=== PATIENT | female | born 1950 | race Caucasian/White ===

== ENCOUNTER 2020-11-20 14:14 | Inpatient (IN) | payer MEDICARE, MEDICAID ==
[~2020-11-20] VITALS: Ht 165.1 cm; Wt 92.6 kg
--- NOTE | 2020-11-20 14:30 | NUR ---
TRANSFER FROM [facility] FOR HYPOXIA R/T COVID. SOB/WEAK, DIARRHEA X 8 DAYS +COVID CXR AT [facility] "SEVERE MULTIFOCAL PNEUMONIA" LACTIC/TROPONIN/BNP/D-DIMER ELEVATED PULMONARY HTN/COPD HX ON 4L NC AT ALL TIMES-ON VIAGRA 3 TIMES/DAY HAD ASPIRIN/MAG/POTASSIUM/ROCEPHIN/AZITHRO/DECADRON PRIOR TO TRANSFER ON ARRIVAL SEVERE WOB BREATHING (RATE 15-20) /BLUE LIP ON OPTIFLOW AT 100% ON 55 LITERS-POX (EAR) 83%
[2020-11-20] MEDS ORDERED: SILDENAFIL 20 MG TABLET PO ONE (15:00)
--- NOTE | 2020-11-20 15:10 | NUR ---
-Patient remain 84-85% on 55l (max) at 100 on high flow. wob improved -Patient needing to void for 3rd time-erp aware- orders received for vera placement for i/os-temp sensing vera placed -poc reviewed with erp (repeat cxr/labs(trop)/electrolytes)/dose her PH Viagra or give inhaled of iv nitric. erp would like to give 40 of po viagra (patient reports she takes 120mg tid) [employer] attempting to verify -Patient coherent-requesting DNI. ERP/hospitalist at bedside agreeable -Patient takes lasix/optimet/viagra. again trying to determine doses -500ml of urine out thus far
[2020-11-20] MEDS ORDERED: FURO-93 PO (15:51)
[2020-11-20] MEDS ORDERED: SILD100T PO (15:51)
[2020-11-20] MEDS ORDERED: MACI10TA PO (15:51)
[2020-11-20] MEDS ORDERED: BUTALB/APAP/CAFFEINE 50MG/325MG/40MG PO PRN ×2 (16:00)
[2020-11-20] MEDS ORDERED: ONDANSETRON 2MG/ML, 2ML IVPush PRN (16:00)
[2020-11-20] MEDS ORDERED: PHARMACY MAY ADJ FOR RENAL FX MC PRN (16:00)
[2020-11-20] MEDS ORDERED: ENALAPRILAT 1.25 MG/ML, 2ML IVPush PRN (16:00)
[2020-11-20] MEDS ORDERED: ONDANSETRON ODT 4 MG PO PRN (16:00)
[2020-11-20] MEDS ORDERED: BACLOFEN 10 MG TABLET PO PRN (16:00)
[2020-11-20] MEDS ORDERED: hydrALAzine 20 MG/ML, 1ML IVPush PRN (16:00)
[2020-11-20] MEDS ORDERED: SODIUM CHLORIDE FLUSH 10ML SYR IVF PRN (16:00)
--- NOTE | 2020-11-20 16:07 | NUR ---
blood cultures drawn-sent to lab piv placed to right forearm from which basic labs and 1 set of ua sent to lab (had abx at [facility]) med recc completed
--- NOTE | 2020-11-20 16:14 | NUR ---
medicated per emar with 40mg of viagra, belongings list completed
[2020-11-20 16:17] VITALS: BP 110/56
--- NOTE | 2020-11-20 16:30 | NUR ---
attempted to give report x1. inpatient rn otherwise ocupied/supervisor extrusion in bed meeting. Will attempt again shortly
[2020-11-20 16:57] LABS: TROPONIN I 0.503 ng/mL (0.000-0.045)
[2020-11-20 17:04] LABS: D-DIMER 4.01 ug/mlFEU (0.00-0.52); INTERNATIONAL NORMALIZED RATIO 1.12 (0.93-1.1); PROTHROMBIN TIME 11.9 Seconds (9.6-11.5)
[2020-11-20] MEDS ORDERED: CYANOCOBALAMIN 1,000 MCG/ML, 1ML IM ONE (17:46)
[2020-11-20] MEDS: methylPREDNISolone SOD SUCC 125 MG/2 ML IV SCH ×2 (20:45→22:20)
[2020-11-20] MEDS: ASCORBIC ACID 500 MG TABLET PO SCH (20:50)
[2020-11-20] MEDS: TEMPLATE NON-FORMULARY MED. (Macitentan** (Opsumit**) 10 MG) PO SCH (22:18)
[2020-11-20] MEDS: MELATONIN 5 MG TABLET PO SCH (22:19)
[2020-11-20] MEDS: ENOXAPARIN 40 MG/0.4 ML SQ SCH (22:19)
[2020-11-20] MEDS: FAMOTIDINE 20 MG TABLET PO SCH (22:19)
[2020-11-21 00:20] LABS: TROPONIN I 0.475 ng/mL (0.000-0.045)
[2020-11-21] MEDS: methylPREDNISolone SOD SUCC 125 MG/2 ML IV SCH ×2 (03:25→09:32)
[2020-11-21 04:14] LABS: MEAN CORPUSCULAR HEMOGLOBIN 31.9 pg (27.0-34.8); MEAN CORPUSCULAR HGB CONC 34.1 g/dL (32.4-35.8); MEAN PLATELET VOLUME 11.1 fL (7.4-10.4); PLATELET COUNT 74 x10^3/uL (130-400); RED BLOOD COUNT 4.67 x10^6/uL (3.82-5.3); RED CELL DISTRIBUTION WIDTH 14.1 % (9.6-15.2)
[2020-11-21 04:24] LABS: ALBUMIN 2.4 g/dL (3.4-5.0); ANION GAP 9 mmol/L (5-15); CALCIUM 8.2 mg/dL (8.5-10.1); CHLORIDE 111 mmol/L (98-107)
[2020-11-21 04:38] LABS: ALANINE AMINOTRANSFERASE 15 U/L (12-78); ALKALINE PHOSPHATASE 54 U/L (45-117); CREATININE 0.71 mg/dL (0.55-1.02); TOTAL PROTEIN 5.6 g/dL (6.4-8.2)
[2020-11-21 04:43] LABS: ANISOCYTOSIS 1+; BAND#(MANUAL) 0.68 x10^3/uL; BANDS%(MANUAL) 11 % (0-7); LYMPH#(MANUAL) 0.56 x10^3/uL (1-3.4); LYMPHS% (MANUAL) 9 % (22-44); METAMYELOCYTES# (MANUAL) 0.12 x10^3/uL (0-0); METAMYELOCYTES% (MANUAL) 2 % (0-1); MONOS#(MANUAL) 0.19 x10^3/uL (0.3-2.7); MONOS% (MANUAL) 3 % (2-9); MYELOCYTES# (MANUAL) 0.06 x10^3/uL (0-0); MYELOCYTES% (MANUAL) 1 % (0-0); PMNS WITH VACUOLES 1+; POLYCHROMASIA 1+; REACTIVE LYMPHS # (MANUAL) 0.12 x10^3/uL (0-0); REACTIVE LYMPHS % (MANUAL) 2 % (0-0); SEG#(MANUAL) 4.46 x10^3/uL (1.8-6.8); SEGS% (MANUAL) 72 % (42-75)
[2020-11-21 04:44] LABS: <PLATELET ESTIMATE> ADEQUATE; <PLT MORPHOLOGY> NORMAL PLT MORPH
[2020-11-21 04:57] LABS: BILIRUBIN,TOTAL 0.7 mg/dL (0.2-1.0); TROPONIN I 0.502 ng/mL (0.000-0.045)
[2020-11-21] MEDS: ASPIRIN 325 MG TABLET EC PO SCH (06:00)
[2020-11-21] MEDS: SENNA/DOCUSATE TABLET PO SCH (09:00)
[2020-11-21] MEDS: TEMPLATE NON-FORMULARY MED. (Macitentan** (Opsumit**) 10 MG) PO SCH (09:00)
[2020-11-21] MEDS ORDERED: ZINC SULFATE 220 MG CAPSULE PO SCH (09:00)
[2020-11-21] MEDS ORDERED: FUROSEMIDE 20 MG TABLET PO SCH (09:00)
[2020-11-21] MEDS: ASCORBIC ACID 500 MG TABLET PO SCH ×2 (09:31→16:40)
[2020-11-21] MEDS: FAMOTIDINE 20 MG TABLET PO SCH ×2 (09:32→20:16)
[2020-11-21] MEDS: MULTIVITS,STRESS FORMULA 1 TABLET PO SCH (09:32)
[2020-11-21] MEDS: ACETAMINOPHEN 325 MG TABLET PO PRN ×2 (09:33→20:15)
[2020-11-21 11:10] LABS: MICROSCOPIC INDICATED
[2020-11-21] MEDS ORDERED: REMDESIVIR 200 MG in SODIUM CHLORIDE 0.9% 250 ML IVPB ONE (12:00)
[2020-11-21] MEDS: FLUTICASONE/VILANTEROL 100-25MCG/INH INH SCH (12:08)
[2020-11-21] MEDS: THIAMINE 100MG TABLET PO SCH (12:40)
[2020-11-21] MEDS: CHOLECALCIFEROL 5,000u TAB PO SCH (12:40)
[2020-11-21 12:47] LABS: TROPONIN I 0.473 ng/mL (0.000-0.045)
[2020-11-21] MEDS ORDERED: SILDENAFIL 20 MG TABLET PO SCH (16:00)
[2020-11-21] MEDS: SILDENAFIL 20 MG TABLET PO SCH (16:38)
[2020-11-21] MEDS: ENOXAPARIN 40 MG/0.4 ML SQ SCH ×2 (16:39→21:51)
[2020-11-21] MEDS: DEXAMETHASONE 4 MG/ML, 1ML IV SCH (16:40)
[2020-11-21] MEDS: CEFTRIAXONE 1,000 MG in DEXTROSE 5% 50 ML IVPB SCH (18:14)
[2020-11-21] MEDS: AZITHROMYCIN 500 MG in SODIUM CHLORIDE 0.9% 250 ML IV SCH (20:07)
[2020-11-21] MEDS: FUROSEMIDE 20 MG/2 ML IV SCH (20:16)
[2020-11-21] MEDS: MELATONIN 5 MG TABLET PO SCH (20:16)
[2020-11-22] MEDS: SILDENAFIL 20 MG TABLET PO SCH ×4 (00:27→23:55)
[2020-11-22 04:34] LABS: BASOPHILS % (AUTO) 0 % (0-1); EOSINOPHILS % (AUTO) 0 % (1-7); LYMPHOCYTES % (AUTO) 6 % (22-44); MEAN CORPUSCULAR HEMOGLOBIN 31.5 pg (27.0-34.8); MEAN CORPUSCULAR HGB CONC 33.5 g/dL (32.4-35.8); MEAN PLATELET VOLUME 11.5 fL (7.4-10.4); MONOCYTES % (AUTO) 6 % (2-9); NEUTROPHILS % (AUTO) 88 % (42-75); PLATELET COUNT 90 x10^3/uL (130-400); RED BLOOD COUNT 4.75 x10^6/uL (3.82-5.3); RED CELL DISTRIBUTION WIDTH 14.5 % (9.6-15.2)
[2020-11-22 04:43] LABS: D-DIMER 1.68 ug/mlFEU (0.00-0.52)
[2020-11-22 04:44] LABS: ALANINE AMINOTRANSFERASE 17 U/L (12-78); ALBUMIN 2.7 g/dL (3.4-5.0); ANION GAP 5 mmol/L (5-15); CALCIUM 8.2 mg/dL (8.5-10.1); CHLORIDE 114 mmol/L (98-107); CREATININE 0.87 mg/dL (0.55-1.02)
[2020-11-22 04:50] LABS: ALKALINE PHOSPHATASE 59 U/L (45-117); BILIRUBIN,TOTAL 0.6 mg/dL (0.2-1.0); TOTAL PROTEIN 5.9 g/dL (6.4-8.2)
[2020-11-22] MEDS: ASPIRIN 325 MG TABLET EC PO SCH (06:07)
[2020-11-22] MEDS: FUROSEMIDE 20 MG/2 ML IV SCH ×2 (09:45→20:23)
[2020-11-22] MEDS: THIAMINE 100MG TABLET PO SCH (09:46)
[2020-11-22] MEDS: MULTIVITS,STRESS FORMULA 1 TABLET PO SCH (09:46)
[2020-11-22] MEDS: FAMOTIDINE 20 MG TABLET PO SCH ×2 (09:46→20:23)
[2020-11-22] MEDS: ASCORBIC ACID 500 MG TABLET PO SCH ×2 (09:46→17:26)
[2020-11-22] MEDS: SENNA/DOCUSATE TABLET PO SCH (09:46)
[2020-11-22] MEDS: CHOLECALCIFEROL 5,000u TAB PO SCH (09:46)
[2020-11-22] MEDS: ZINC SULFATE 220 MG CAPSULE PO SCH (09:46)
[2020-11-22] MEDS: ENOXAPARIN 40 MG/0.4 ML SQ SCH ×2 (09:47→20:24)
[2020-11-22] MEDS: TEMPLATE NON-FORMULARY MED. (Macitentan** (Opsumit**) 10 MG) PO SCH (09:47)
[2020-11-22] MEDS: FLUTICASONE/VILANTEROL 100-25MCG/INH INH SCH (09:48)
[2020-11-22] MEDS: POTASSIUM CHLORIDE 20 MEQ TAB.ER.PRT PO SCH ×2 (09:53→20:23)
[2020-11-22] MEDS: REMDESIVIR 100 MG in SODIUM CHLORIDE 0.9% 250 ML IVPB SCH (12:29)
[2020-11-22] MEDS: DEXAMETHASONE 4 MG/ML, 1ML IV SCH (15:36)
[2020-11-22] MEDS: CEFTRIAXONE 1,000 MG in DEXTROSE 5% 50 ML IVPB SCH (17:27)
[2020-11-22] MEDS: AZITHROMYCIN 500 MG in SODIUM CHLORIDE 0.9% 250 ML IV SCH (19:33)
[2020-11-22] MEDS: MELATONIN 5 MG TABLET PO SCH (20:23)
[2020-11-22] MEDS: GUAIFENESIN/DM 200-20MG, 10ML UDC PO PRN (21:41)
[2020-11-23 04:30] LABS: BASOPHILS % (AUTO) 0 % (0-1); EOSINOPHILS % (AUTO) 0 % (1-7); LYMPHOCYTES % (AUTO) 5 % (22-44); MEAN CORPUSCULAR HEMOGLOBIN 31.2 pg (27.0-34.8); MEAN CORPUSCULAR HGB CONC 33.3 g/dL (32.4-35.8); MONOCYTES % (AUTO) 4 % (2-9); NEUTROPHILS % (AUTO) 90 % (42-75); PLATELET COUNT 104 x10^3/uL (130-400); RED BLOOD COUNT 4.68 x10^6/uL (3.82-5.3); RED CELL DISTRIBUTION WIDTH 14.3 % (9.6-15.2)
[2020-11-23 04:42] LABS: ALANINE AMINOTRANSFERASE 20 U/L (12-78); ALBUMIN 2.4 g/dL (3.4-5.0); ANION GAP 5 mmol/L (5-15); CALCIUM 8.1 mg/dL (8.5-10.1); CHLORIDE 114 mmol/L (98-107); CREATININE 0.86 mg/dL (0.55-1.02)
[2020-11-23 04:44] LABS: ALKALINE PHOSPHATASE 55 U/L (45-117); BILIRUBIN,TOTAL 0.4 mg/dL (0.2-1.0); TOTAL PROTEIN 5.5 g/dL (6.4-8.2)
[2020-11-23] MEDS: ASPIRIN 325 MG TABLET EC PO SCH (05:44)
[2020-11-23] MEDS: GUAIFENESIN/DM 200-20MG, 10ML UDC PO PRN ×2 (07:04→19:20)
[2020-11-23] MEDS: SENNA/DOCUSATE TABLET PO SCH (09:00)
[2020-11-23] MEDS: SILDENAFIL 20 MG TABLET PO SCH ×2 (09:40→16:34)
[2020-11-23] MEDS: ENOXAPARIN 40 MG/0.4 ML SQ SCH ×2 (09:40→20:20)
[2020-11-23] MEDS: FLUTICASONE/VILANTEROL 100-25MCG/INH INH SCH (09:40)
[2020-11-23] MEDS: CHOLECALCIFEROL 5,000u TAB PO SCH (09:41)
[2020-11-23] MEDS: THIAMINE 100MG TABLET PO SCH (09:41)
[2020-11-23] MEDS: FUROSEMIDE 20 MG/2 ML IV SCH ×2 (09:41→20:20)
[2020-11-23] MEDS: FAMOTIDINE 20 MG TABLET PO SCH ×2 (09:41→20:20)
[2020-11-23] MEDS: ASCORBIC ACID 500 MG TABLET PO SCH ×2 (09:41→16:34)
[2020-11-23] MEDS: ZINC SULFATE 220 MG CAPSULE PO SCH (09:42)
[2020-11-23] MEDS: TEMPLATE NON-FORMULARY MED. (Macitentan** (Opsumit**) 10 MG) PO SCH (09:42)
[2020-11-23] MEDS: MULTIVITS,STRESS FORMULA 1 TABLET PO SCH (09:42)
[2020-11-23] MEDS: REMDESIVIR 100 MG in SODIUM CHLORIDE 0.9% 250 ML IVPB SCH (12:22)
[2020-11-23] MEDS ORDERED: AMIODARONE 150 MG in DEXTROSE 5% 100 ML IV ONE (16:00)
[2020-11-23] MEDS ORDERED: FILTER 0.22 MICRON IV PRN (16:30)
[2020-11-23] MEDS: DEXAMETHASONE 4 MG/ML, 1ML IV SCH (16:34)
[2020-11-23] MEDS: AMIODARONE 450 MG in DEXTROSE 5% 241 ML IV PRN ×2 (16:35→21:33)
[2020-11-23] MEDS: CEFTRIAXONE 1,000 MG in DEXTROSE 5% 50 ML IVPB SCH (16:36)
[2020-11-23] MEDS: AZITHROMYCIN 500 MG in SODIUM CHLORIDE 0.9% 250 ML IV SCH (19:53)
[2020-11-23] MEDS: MELATONIN 5 MG TABLET PO SCH (20:20)
[2020-11-24 05:00] LABS: CALCIUM 8.4 mg/dL (8.5-10.1); CHLORIDE 110 mmol/L (98-107)
[2020-11-24 05:06] LABS: ALANINE AMINOTRANSFERASE 24 U/L (12-78); ALBUMIN 2.4 g/dL (3.4-5.0); ALKALINE PHOSPHATASE 58 U/L (45-117); ANION GAP 6 mmol/L (5-15); BILIRUBIN,TOTAL 0.6 mg/dL (0.2-1.0); CREATININE 0.81 mg/dL (0.55-1.02); TOTAL PROTEIN 5.8 g/dL (6.4-8.2)
[2020-11-24] MEDS ORDERED: POTASSIUM CHLORIDE 20 MEQ TAB.ER.PRT PO ONE (07:00)
[2020-11-24] MEDS: ASCORBIC ACID 500 MG TABLET PO SCH ×2 (08:00→16:14)
[2020-11-24] MEDS: SILDENAFIL 20 MG TABLET PO SCH ×4 (08:00→23:52)
[2020-11-24] MEDS ORDERED: ASCORBIC ACID 250 MG TAB ONE (08:28)
[2020-11-24] MEDS: ASPIRIN 325 MG TABLET EC PO SCH (08:39)
[2020-11-24] MEDS: ENOXAPARIN 40 MG/0.4 ML SQ SCH (08:39)
[2020-11-24] MEDS: THIAMINE 100MG TABLET PO SCH (08:39)
[2020-11-24] MEDS: ZINC SULFATE 220 MG CAPSULE PO SCH (08:40)
[2020-11-24] MEDS: MULTIVITS,STRESS FORMULA 1 TABLET PO SCH (08:40)
[2020-11-24] MEDS: FLUTICASONE/VILANTEROL 100-25MCG/INH INH SCH (08:40)
[2020-11-24] MEDS: CHOLECALCIFEROL 5,000u TAB PO SCH (08:40)
[2020-11-24] MEDS: FAMOTIDINE 20 MG TABLET PO SCH ×2 (08:40→20:43)
[2020-11-24] MEDS: FUROSEMIDE 20 MG/2 ML IV SCH ×2 (08:40→20:43)
[2020-11-24] MEDS: TEMPLATE NON-FORMULARY MED. (Macitentan** (Opsumit**) 10 MG) PO SCH (08:41)
[2020-11-24] MEDS: SENNA/DOCUSATE TABLET PO SCH (08:41)
[2020-11-24] MEDS: REMDESIVIR 100 MG in SODIUM CHLORIDE 0.9% 250 ML IVPB SCH (12:26)
[2020-11-24] MEDS: GUAIFENESIN/DM 200-20MG, 10ML UDC PO PRN (12:26)
[2020-11-24] MEDS: AMIODARONE 450 MG in DEXTROSE 5% 241 ML IV PRN (12:52)
[2020-11-24] MEDS: DEXAMETHASONE 4 MG/ML, 1ML IV SCH (16:14)
[2020-11-24] MEDS: CEFTRIAXONE 1,000 MG in DEXTROSE 5% 50 ML IVPB SCH (16:14)
[2020-11-24] MEDS: RIVAROXABAN 20 MG TABLET PO SCH (16:14)
[2020-11-24] MEDS: MELATONIN 5 MG TABLET PO SCH (20:43)
[2020-11-25] MEDS: AMIODARONE 450 MG in DEXTROSE 5% 241 ML IV PRN (03:58)
[2020-11-25 04:18] LABS: ALBUMIN 2.2 g/dL (3.4-5.0); ANION GAP 5 mmol/L (5-15); CALCIUM 8.7 mg/dL (8.5-10.1); CHLORIDE 109 mmol/L (98-107)
[2020-11-25 04:21] LABS: ALANINE AMINOTRANSFERASE 21 U/L (12-78); ALKALINE PHOSPHATASE 60 U/L (45-117); BILIRUBIN,TOTAL 0.5 mg/dL (0.2-1.0); TOTAL PROTEIN 5.5 g/dL (6.4-8.2)
[2020-11-25] MEDS: SILDENAFIL 20 MG TABLET PO SCH ×3 (08:00→21:38)
[2020-11-25] MEDS: ASCORBIC ACID 500 MG TABLET PO SCH ×2 (08:00→16:18)
[2020-11-25] MEDS: SENNA/DOCUSATE TABLET PO SCH (09:00)
[2020-11-25] MEDS: TEMPLATE NON-FORMULARY MED. (Macitentan** (Opsumit**) 10 MG) PO SCH (09:00)
[2020-11-25] MEDS ORDERED: ASCORBIC ACID 250 MG TAB ONE (09:20)
[2020-11-25] MEDS: FUROSEMIDE 20 MG/2 ML IV SCH ×2 (09:26→21:02)
[2020-11-25] MEDS: ZINC SULFATE 220 MG CAPSULE PO SCH (09:26)
[2020-11-25] MEDS: FAMOTIDINE 20 MG TABLET PO SCH ×2 (09:26→21:02)
[2020-11-25] MEDS: AMIODARONE 200 MG TABLET PO SCH ×2 (09:27→21:03)
[2020-11-25] MEDS: MULTIVITS,STRESS FORMULA 1 TABLET PO SCH (09:28)
[2020-11-25] MEDS: FLUTICASONE/VILANTEROL 100-25MCG/INH INH SCH (09:28)
[2020-11-25] MEDS: THIAMINE 100MG TABLET PO SCH (09:28)
[2020-11-25] MEDS: CHOLECALCIFEROL 5,000u TAB PO SCH (09:28)
[2020-11-25] MEDS: ASPIRIN 325 MG TABLET EC PO SCH (09:29)
[2020-11-25] MEDS: REMDESIVIR 100 MG in SODIUM CHLORIDE 0.9% 250 ML IVPB SCH (12:32)
[2020-11-25] MEDS: DEXAMETHASONE 4 MG/ML, 1ML IV SCH (16:17)
[2020-11-25] MEDS: CEFTRIAXONE 1,000 MG in DEXTROSE 5% 50 ML IVPB SCH (16:18)
[2020-11-25] MEDS: RIVAROXABAN 20 MG TABLET PO SCH (16:18)
[2020-11-25] MEDS: GUAIFENESIN/DM 200-20MG, 10ML UDC PO PRN (17:47)
[2020-11-25] MEDS: MELATONIN 5 MG TABLET PO SCH (21:00)
[2020-11-25] MEDS ORDERED: BISACODYL 10 MG SUPP PR PRN (21:30)
[2020-11-25] MEDS ORDERED: DOCUSATE 100 MG CAPSULE PO PRN (21:30)
[2020-11-26 03:56] LABS: BASOPHILS % (AUTO) 0 % (0-1); EOSINOPHILS % (AUTO) 0 % (1-7); LYMPHOCYTES % (AUTO) 5 % (22-44); MEAN CORPUSCULAR HEMOGLOBIN 30.9 pg (27.0-34.8); MEAN CORPUSCULAR HGB CONC 32.8 g/dL (32.4-35.8); MEAN PLATELET VOLUME 12.4 fL (7.4-10.4); MONOCYTES % (AUTO) 4 % (2-9); NEUTROPHILS % (AUTO) 91 % (42-75); PLATELET COUNT 100 x10^3/uL (130-400); RED BLOOD COUNT 5.32 x10^6/uL (3.82-5.3); RED CELL DISTRIBUTION WIDTH 14.2 % (9.6-15.2)
[2020-11-26 04:06] LABS: ANION GAP 6 mmol/L (5-15); CALCIUM 9.1 mg/dL (8.5-10.1); CHLORIDE 106 mmol/L (98-107); CREATININE 0.79 mg/dL (0.55-1.02)
[2020-11-26] MEDS: SILDENAFIL 20 MG TABLET PO SCH ×2 (08:00→15:22)
[2020-11-26] MEDS: ASPIRIN 325 MG TABLET EC PO SCH (08:07)
[2020-11-26] MEDS: MULTIVITS,STRESS FORMULA 1 TABLET PO SCH (08:07)
[2020-11-26] MEDS: FAMOTIDINE 20 MG TABLET PO SCH ×2 (08:07→20:16)
[2020-11-26] MEDS: AMIODARONE 200 MG TABLET PO SCH ×2 (08:07→20:16)
[2020-11-26] MEDS: SENNA/DOCUSATE TABLET PO SCH (08:07)
[2020-11-26] MEDS: ASCORBIC ACID 500 MG TABLET PO SCH ×2 (08:07→17:16)
[2020-11-26] MEDS: CHOLECALCIFEROL 5,000u TAB PO SCH (08:07)
[2020-11-26] MEDS: INSULIN LISPRO 100 UNITS/ML, PEN SQ-INSULIN SCH ×4 (08:07→20:28)
[2020-11-26] MEDS: ZINC SULFATE 220 MG CAPSULE PO SCH (08:08)
[2020-11-26] MEDS: THIAMINE 100MG TABLET PO SCH (08:08)
[2020-11-26] MEDS: FUROSEMIDE 20 MG/2 ML IV SCH ×2 (08:08→20:23)
[2020-11-26] MEDS: FLUTICASONE/VILANTEROL 100-25MCG/INH INH SCH (08:08)
[2020-11-26] MEDS: TEMPLATE NON-FORMULARY MED. (Macitentan** (Opsumit**) 10 MG) PO SCH (08:09)
[2020-11-26] MEDS: DEXAMETHASONE 4 MG/ML, 1ML IV SCH (15:22)
[2020-11-26] MEDS: CEFTRIAXONE 1,000 MG in DEXTROSE 5% 50 ML IVPB SCH (17:16)
[2020-11-26] MEDS: RIVAROXABAN 20 MG TABLET PO SCH (17:16)
[2020-11-26] MEDS ORDERED: FUROSEMIDE 40 MG/4 ML ONE (19:44)
[2020-11-26] MEDS: MELATONIN 5 MG TABLET PO SCH (20:16)
[2020-11-27] MEDS: SILDENAFIL 20 MG TABLET PO SCH ×3 (00:41→16:00)
[2020-11-27 06:10] LABS: CHLORIDE 102 mmol/L (98-107)
[2020-11-27 06:16] LABS: ANION GAP 9 mmol/L (5-15); CALCIUM 9.7 mg/dL (8.5-10.1); CREATININE 0.95 mg/dL (0.55-1.02)
[2020-11-27] MEDS: INSULIN LISPRO 100 UNITS/ML, PEN SQ-INSULIN SCH ×4 (06:23→21:47)
[2020-11-27] MEDS ORDERED: FUROSEMIDE 40 MG/4 ML ONE (07:59)
[2020-11-27] MEDS: FUROSEMIDE 20 MG/2 ML IV SCH ×2 (08:32→21:40)
[2020-11-27] MEDS: SENNA/DOCUSATE TABLET PO SCH (08:33)
[2020-11-27] MEDS: CHOLECALCIFEROL 5,000u TAB PO SCH (08:33)
[2020-11-27] MEDS: AMIODARONE 200 MG TABLET PO SCH ×2 (08:33→21:40)
[2020-11-27] MEDS: ZINC SULFATE 220 MG CAPSULE PO SCH (08:33)
[2020-11-27] MEDS: MULTIVITS,STRESS FORMULA 1 TABLET PO SCH (08:34)
[2020-11-27] MEDS: TEMPLATE NON-FORMULARY MED. (Macitentan** (Opsumit**) 10 MG) PO SCH (08:34)
[2020-11-27] MEDS: ASPIRIN 325 MG TABLET EC PO SCH (08:34)
[2020-11-27] MEDS: ASCORBIC ACID 500 MG TABLET PO SCH ×2 (08:34→16:06)
[2020-11-27] MEDS: THIAMINE 100MG TABLET PO SCH (08:34)
[2020-11-27] MEDS: FLUTICASONE/VILANTEROL 100-25MCG/INH INH SCH (08:50)
[2020-11-27] MEDS: RIVAROXABAN 20 MG TABLET PO SCH (16:06)
[2020-11-27] MEDS: DEXAMETHASONE 4 MG/ML, 1ML IV SCH (16:07)
[2020-11-27] MEDS: CEFTRIAXONE 1,000 MG in DEXTROSE 5% 50 ML IVPB SCH (16:24)
[2020-11-27] MEDS: FAMOTIDINE 20 MG TABLET PO SCH (21:40)
[2020-11-27] MEDS: MELATONIN 5 MG TABLET PO SCH (21:40)
[2020-11-28] MEDS: SILDENAFIL 20 MG TABLET PO SCH ×4 (00:20→23:53)
[2020-11-28 04:40] LABS: BASOPHILS % (AUTO) 0 % (0-1); EOSINOPHILS % (AUTO) 0 % (1-7); LYMPHOCYTES % (AUTO) 5 % (22-44); MEAN CORPUSCULAR HEMOGLOBIN 30.9 pg (27.0-34.8); MEAN CORPUSCULAR HGB CONC 32.7 g/dL (32.4-35.8); MEAN PLATELET VOLUME 12.2 fL (7.4-10.4); MONOCYTES % (AUTO) 4 % (2-9); NEUTROPHILS % (AUTO) 91 % (42-75); PLATELET COUNT 99 x10^3/uL (130-400); RED BLOOD COUNT 5.18 x10^6/uL (3.82-5.3); RED CELL DISTRIBUTION WIDTH 14.5 % (9.6-15.2)
[2020-11-28 04:52] LABS: CALCIUM 9.3 mg/dL (8.5-10.1)
[2020-11-28 04:54] LABS: CREATININE 0.98 mg/dL (0.55-1.02)
[2020-11-28 05:01] LABS: ANION GAP 9 mmol/L (5-15); CHLORIDE 101 mmol/L (98-107)
[2020-11-28] MEDS: INSULIN LISPRO 100 UNITS/ML, PEN SQ-INSULIN SCH ×4 (07:00→22:46)
[2020-11-28] MEDS: ASCORBIC ACID 500 MG TABLET PO SCH ×2 (08:00→17:09)
[2020-11-28] MEDS: CHOLECALCIFEROL 5,000u TAB PO SCH (08:38)
[2020-11-28] MEDS: THIAMINE 100MG TABLET PO SCH (08:38)
[2020-11-28] MEDS: FUROSEMIDE 20 MG/2 ML IV SCH (08:38)
[2020-11-28] MEDS: ASPIRIN 325 MG TABLET EC PO SCH (08:38)
[2020-11-28] MEDS: ZINC SULFATE 220 MG CAPSULE PO SCH (08:39)
[2020-11-28] MEDS: MULTIVITS,STRESS FORMULA 1 TABLET PO SCH (08:39)
[2020-11-28] MEDS: AMIODARONE 200 MG TABLET PO SCH ×2 (08:39→22:32)
[2020-11-28] MEDS: TEMPLATE NON-FORMULARY MED. (Macitentan** (Opsumit**) 10 MG) PO SCH (08:39)
[2020-11-28] MEDS: SENNA/DOCUSATE TABLET PO SCH (08:39)
[2020-11-28] MEDS: FLUTICASONE/VILANTEROL 100-25MCG/INH INH SCH (09:01)
[2020-11-28] MEDS ORDERED: ETOMIDATE 20 MG/10 ML ONE (09:54)
[2020-11-28] MEDS ORDERED: MIDAZOLAM 1 MG/ML, 5ML ONE (09:54)
[2020-11-28] MEDS ORDERED: PROPOFOL 10 MG/ML, 100ML IV ONE (09:54)
[2020-11-28] MEDS ORDERED: PHARMACY MAY ADJ FOR RENAL FX MC SCH (16:30)
[2020-11-28] MEDS ORDERED: DEXTROSE 50%, 50ML SYRINGE IVPush PRN (16:30)
[2020-11-28] MEDS ORDERED: LIDOCAINE-MPF 1%, 2ML ENDO PRN (16:30)
[2020-11-28] MEDS ORDERED: DEXTROSE 4 GM TAB.CHEW PO PRN (16:30)
[2020-11-28] MEDS: PROPOFOL 100 ML IV PRN ×3 (16:30→23:54)
[2020-11-28] MEDS ORDERED: GLUCAGON 1 MG IM PRN (16:30)
[2020-11-28] MEDS: RIVAROXABAN 20 MG TABLET PO SCH (17:09)
[2020-11-28] MEDS: DEXAMETHASONE 4 MG/ML, 1ML IV SCH (17:10)
[2020-11-28] MEDS: FAMOTIDINE 40 MG/5 ML ORAL SUSP PO SCH (22:33)
[2020-11-28] MEDS: SODIUM CHLORIDE FLUSH 10ML SYR IVF SCH (22:36)
[2020-11-29 05:06] LABS: ANION GAP 5 mmol/L (5-15); BASOPHILS % (AUTO) 1 % (0-1); CALCIUM 9.1 mg/dL (8.5-10.1); CHLORIDE 101 mmol/L (98-107); EOSINOPHILS % (AUTO) 0 % (1-7); LYMPHOCYTES % (AUTO) 4 % (22-44); MEAN CORPUSCULAR HEMOGLOBIN 31.5 pg (27.0-34.8); MEAN CORPUSCULAR HGB CONC 33.3 g/dL (32.4-35.8); MEAN PLATELET VOLUME 13.6 fL (7.4-10.4); MONOCYTES % (AUTO) 4 % (2-9); NEUTROPHILS % (AUTO) 90 % (42-75); PLATELET COUNT 105 x10^3/uL (130-400); RED BLOOD COUNT 5.02 x10^6/uL (3.82-5.3); RED CELL DISTRIBUTION WIDTH 14.5 % (9.6-15.2)
[2020-11-29] MEDS: INSULIN LISPRO 100 UNITS/ML, PEN SQ-INSULIN SCH ×4 (06:53→21:17)
[2020-11-29] MEDS: FLUTICASONE/VILANTEROL 100-25MCG/INH INH SCH (09:00)
[2020-11-29] MEDS: TEMPLATE NON-FORMULARY MED. (Macitentan** (Opsumit**) 10 MG) PO SCH (09:00)
[2020-11-29] MEDS: AMIODARONE 200 MG TABLET PO SCH ×2 (09:23→21:17)
[2020-11-29] MEDS: MULTIVITS,STRESS FORMULA 1 TABLET PO SCH (09:23)
[2020-11-29] MEDS: ASPIRIN 325 MG TABLET PO SCH (09:23)
[2020-11-29] MEDS: FUROSEMIDE 20 MG/2 ML IV SCH (09:24)
[2020-11-29] MEDS: ZINC SULFATE 220 MG CAPSULE PO SCH (09:24)
[2020-11-29] MEDS: SILDENAFIL 20 MG TABLET PO SCH ×2 (09:24→15:05)
[2020-11-29] MEDS: THIAMINE 100MG TABLET PO SCH (09:24)
[2020-11-29] MEDS: DOCUSATE 50 MG/5 ML, 10ML UDC PO SCH (09:24)
[2020-11-29] MEDS: ASCORBIC ACID 500 MG TABLET PO SCH ×2 (09:24→21:17)
[2020-11-29] MEDS: CHOLECALCIFEROL 5,000u TAB PO SCH (09:24)
[2020-11-29] MEDS: SODIUM CHLORIDE FLUSH 10ML SYR IVF SCH ×2 (09:25→21:18)
[2020-11-29] MEDS: SENNA 176 MG/5 ML ORAL SOL PO SCH (09:27)
[2020-11-29] MEDS: PROPOFOL 100 ML IV PRN ×2 (09:56→18:12)
[2020-11-29 10:30] LABS: MICROSCOPIC INDICATED
[2020-11-29] MEDS: DEXAMETHASONE 4 MG/ML, 1ML IV SCH (15:04)
[2020-11-29] MEDS: RIVAROXABAN 20 MG TABLET PO SCH (15:04)
[2020-11-29] MEDS: FAMOTIDINE 40 MG/5 ML ORAL SUSP PO SCH (21:17)
[2020-11-30] MEDS: SILDENAFIL 20 MG TABLET PO SCH ×4 (00:04→23:39)
[2020-11-30] MEDS: PROPOFOL 100 ML IV PRN ×4 (03:41→23:39)
[2020-11-30] MEDS: INSULIN LISPRO 100 UNITS/ML, PEN SQ-INSULIN SCH ×4 (03:57→21:15)
[2020-11-30 04:18] LABS: BASOPHILS % (AUTO) 0 % (0-1); EOSINOPHILS % (AUTO) 0 % (1-7); LYMPHOCYTES % (AUTO) 3 % (22-44); MEAN CORPUSCULAR HEMOGLOBIN 30.7 pg (27.0-34.8); MEAN CORPUSCULAR HGB CONC 32.8 g/dL (32.4-35.8); MONOCYTES % (AUTO) 6 % (2-9); NEUTROPHILS % (AUTO) 91 % (42-75); PLATELET COUNT 86 x10^3/uL (130-400); RED BLOOD COUNT 4.85 x10^6/uL (3.82-5.3); RED CELL DISTRIBUTION WIDTH 14.4 % (9.6-15.2)
[2020-11-30 04:25] LABS: ANION GAP 5 mmol/L (5-15); CALCIUM 8.8 mg/dL (8.5-10.1); CHLORIDE 101 mmol/L (98-107)
[2020-11-30 04:26] LABS: CREATININE 1.32 mg/dL (0.55-1.02)
[2020-11-30] MEDS: AMIODARONE 200 MG TABLET PO SCH ×2 (08:57→21:14)
[2020-11-30] MEDS: CHOLECALCIFEROL 5,000u TAB PO SCH (08:57)
[2020-11-30] MEDS: MULTIVITS,STRESS FORMULA 1 TABLET PO SCH (08:57)
[2020-11-30] MEDS: TEMPLATE NON-FORMULARY MED. (Macitentan** (Opsumit**) 10 MG) PO SCH (08:58)
[2020-11-30] MEDS: ASCORBIC ACID 500 MG TABLET PO SCH ×2 (08:58→21:14)
[2020-11-30] MEDS: ZINC SULFATE 220 MG CAPSULE PO SCH (08:58)
[2020-11-30] MEDS: THIAMINE 100MG TABLET PO SCH (08:58)
[2020-11-30] MEDS: FLUTICASONE/VILANTEROL 100-25MCG/INH INH SCH (09:00)
[2020-11-30] MEDS: ASPIRIN 325 MG TABLET PO SCH (09:06)
[2020-11-30] MEDS: DOCUSATE 50 MG/5 ML, 10ML UDC PO SCH (09:07)
[2020-11-30] MEDS: SENNA 176 MG/5 ML ORAL SOL PO SCH (09:08)
[2020-11-30] MEDS: SODIUM CHLORIDE FLUSH 10ML SYR IVF SCH ×2 (09:36→21:14)
[2020-11-30] MEDS: RIVAROXABAN 20 MG TABLET PO SCH (14:46)
[2020-11-30] MEDS: DEXAMETHASONE 4 MG/ML, 1ML IV SCH (14:46)
[2020-11-30] MEDS: FAMOTIDINE 40 MG/5 ML ORAL SUSP PO SCH (21:14)
[2020-12-01] MEDS: INSULIN LISPRO 100 UNITS/ML, PEN SQ-INSULIN SCH ×4 (04:25→21:09)
[2020-12-01 04:37] LABS: BASOPHILS % (AUTO) 1 % (0-1); EOSINOPHILS % (AUTO) 1 % (1-7); LYMPHOCYTES % (AUTO) 3 % (22-44); MEAN CORPUSCULAR HEMOGLOBIN 30.8 pg (27.0-34.8); MEAN CORPUSCULAR HGB CONC 32.9 g/dL (32.4-35.8); MONOCYTES % (AUTO) 6 % (2-9); NEUTROPHILS % (AUTO) 90 % (42-75); PLATELET COUNT 88 x10^3/uL (130-400); RED BLOOD COUNT 4.48 x10^6/uL (3.82-5.3); RED CELL DISTRIBUTION WIDTH 14.4 % (9.6-15.2)
[2020-12-01 04:50] LABS: ANION GAP 5 mmol/L (5-15); CALCIUM 8.5 mg/dL (8.5-10.1); CHLORIDE 105 mmol/L (98-107); CREATININE 0.95 mg/dL (0.55-1.02); TRIGLYCERIDES 179 mg/dL (50-200)
[2020-12-01] MEDS: PROPOFOL 100 ML IV PRN ×3 (06:03→21:10)
[2020-12-01] MEDS: FILTER 0.22 MICRON IV PRN ×2 (08:30→21:11)
[2020-12-01] MEDS: AMIODARONE 450 MG in DEXTROSE 5% 241 ML IV PRN ×2 (08:30→21:10)
[2020-12-01] MEDS ORDERED: AMIODARONE 150 MG in DEXTROSE 5% 97 ML IVPB ONE (09:00)
[2020-12-01] MEDS ORDERED: AMIODARONE 200 MG TABLET PO SCH (09:00)
[2020-12-01] MEDS: FLUTICASONE/VILANTEROL 100-25MCG/INH INH SCH (09:00)
[2020-12-01] MEDS: TEMPLATE NON-FORMULARY MED. (Macitentan** (Opsumit**) 10 MG) PO SCH (09:00)
[2020-12-01] MEDS ORDERED: AMIODARONE 450 MG in DEXTROSE 5% 241 ML IV PRN (09:00)
[2020-12-01] MEDS: SILDENAFIL 20 MG TABLET PO SCH ×2 (09:30→15:35)
[2020-12-01] MEDS: DOCUSATE 50 MG/5 ML, 10ML UDC PO SCH (09:31)
[2020-12-01] MEDS: ASCORBIC ACID 500 MG TABLET PO SCH (09:31)
[2020-12-01] MEDS: MULTIVITS,STRESS FORMULA 1 TABLET PO SCH (09:31)
[2020-12-01] MEDS: SODIUM CHLORIDE FLUSH 10ML SYR IVF SCH ×2 (09:32→21:10)
[2020-12-01] MEDS: ASPIRIN 325 MG TABLET PO SCH (09:38)
[2020-12-01] MEDS: SENNA 176 MG/5 ML ORAL SOL PO SCH (13:44)
[2020-12-01] MEDS: RIVAROXABAN 20 MG TABLET PO SCH (18:22)
[2020-12-01] MEDS: FAMOTIDINE 40 MG/5 ML ORAL SUSP PO SCH (21:10)
[2020-12-02] MEDS: SILDENAFIL 20 MG TABLET PO SCH ×3 (00:13→15:29)
[2020-12-02] MEDS: PROPOFOL 100 ML IV PRN ×4 (03:06→22:03)
[2020-12-02] MEDS: INSULIN LISPRO 100 UNITS/ML, PEN SQ-INSULIN SCH ×4 (03:19→21:34)
[2020-12-02 03:35] LABS: BASOPHILS % (AUTO) 0 % (0-1); EOSINOPHILS % (AUTO) 1 % (1-7); LYMPHOCYTES % (AUTO) 4 % (22-44); MEAN CORPUSCULAR HEMOGLOBIN 31.4 pg (27.0-34.8); MEAN CORPUSCULAR HGB CONC 33.4 g/dL (32.4-35.8); MEAN PLATELET VOLUME 12.9 fL (7.4-10.4); MONOCYTES % (AUTO) 3 % (2-9); NEUTROPHILS % (AUTO) 92 % (42-75); PLATELET COUNT 64 x10^3/uL (130-400); RED BLOOD COUNT 4.05 x10^6/uL (3.82-5.3); RED CELL DISTRIBUTION WIDTH 13.9 % (9.6-15.2)
[2020-12-02 03:44] LABS: ANION GAP 4 mmol/L (5-15); CALCIUM 8.5 mg/dL (8.5-10.1); CHLORIDE 105 mmol/L (98-107); CREATININE 0.79 mg/dL (0.55-1.02)
[2020-12-02] MEDS: SODIUM CHLORIDE FLUSH 10ML SYR IVF SCH ×2 (09:00→21:33)
[2020-12-02] MEDS: HEPARIN 5,000 UNITS/ML, 1ML SQ SCH ×2 (09:50→21:34)
[2020-12-02] MEDS: TEMPLATE NON-FORMULARY MED. (Macitentan** (Opsumit**) 10 MG) PO SCH (09:51)
[2020-12-02] MEDS: FLUTICASONE/VILANTEROL 100-25MCG/INH INH SCH (09:51)
[2020-12-02] MEDS: DOCUSATE 50 MG/5 ML, 10ML UDC PO SCH (09:51)
[2020-12-02] MEDS: MULTIVITS,STRESS FORMULA 1 TABLET PO SCH (10:18)
[2020-12-02] MEDS: SENNA 176 MG/5 ML ORAL SOL PO SCH (10:18)
[2020-12-02] MEDS: AMIODARONE 200 MG TABLET PO SCH (12:06)
[2020-12-02] MEDS: FAMOTIDINE 40 MG/5 ML ORAL SUSP PO SCH (21:34)
[2020-12-02] MEDS ORDERED: FUROSEMIDE 40 MG/4 ML IV ONE (22:30)
[2020-12-02] MEDS: NOREPINEPHRINE 8 MG in SODIUM CHLORIDE 0.9% 242 ML IV PRN (22:39)
[2020-12-03] MEDS: SILDENAFIL 20 MG TABLET PO SCH ×3 (00:19→15:38)
[2020-12-03] MEDS: PROPOFOL 100 ML IV PRN ×4 (04:04→23:31)
[2020-12-03] MEDS: INSULIN LISPRO 100 UNITS/ML, PEN SQ-INSULIN SCH ×4 (04:13→21:34)
[2020-12-03 04:46] LABS: BASOPHILS % (AUTO) 0 % (0-1); EOSINOPHILS % (AUTO) 2 % (1-7); LYMPHOCYTES % (AUTO) 6 % (22-44); MEAN CORPUSCULAR HGB CONC 33.3 g/dL (32.4-35.8); MEAN PLATELET VOLUME 12.1 fL (7.4-10.4); MONOCYTES % (AUTO) 3 % (2-9); NEUTROPHILS % (AUTO) 88 % (42-75); PLATELET COUNT 55 x10^3/uL (130-400); RED BLOOD COUNT 3.98 x10^6/uL (3.82-5.3); RED CELL DISTRIBUTION WIDTH 14.1 % (9.6-15.2)
[2020-12-03 04:55] LABS: ANION GAP 5 mmol/L (5-15); CALCIUM 8.4 mg/dL (8.5-10.1); CHLORIDE 102 mmol/L (98-107); CREATININE 0.65 mg/dL (0.55-1.02)
[2020-12-03] MEDS: FLUTICASONE/VILANTEROL 100-25MCG/INH INH SCH (08:08)
[2020-12-03] MEDS: SODIUM CHLORIDE FLUSH 10ML SYR IVF SCH ×2 (08:09→21:33)
[2020-12-03] MEDS: POTASSIUM CHLORIDE 20 MEQ PACKET PO SCH ×2 (08:10→17:49)
[2020-12-03] MEDS: DOCUSATE 50 MG/5 ML, 10ML UDC PO SCH (08:10)
[2020-12-03] MEDS: AMIODARONE 200 MG TABLET PO SCH (08:10)
[2020-12-03] MEDS: AcetaZOLAMIDE INJ 500 MG IVPush SCH ×2 (08:10→21:33)
[2020-12-03] MEDS: HEPARIN 5,000 UNITS/ML, 1ML SQ SCH ×2 (08:11→21:34)
[2020-12-03] MEDS: MULTIVITS,STRESS FORMULA 1 TABLET PO SCH (08:56)
[2020-12-03] MEDS: SENNA 176 MG/5 ML ORAL SOL PO SCH (08:56)
[2020-12-03] MEDS: TEMPLATE NON-FORMULARY MED. (Macitentan** (Opsumit**) 10 MG) PO SCH (08:56)
[2020-12-03] MEDS ORDERED: AMIODARONE 200 MG TABLET PO SCH (09:00)
[2020-12-03] MEDS: NOREPINEPHRINE 8 MG in SODIUM CHLORIDE 0.9% 242 ML IV PRN (13:03)
[2020-12-03] MEDS: FAMOTIDINE 40 MG/5 ML ORAL SUSP PO SCH (21:34)
[2020-12-04] MEDS: SILDENAFIL 20 MG TABLET PO SCH ×4 (00:57→23:43)
[2020-12-04] MEDS: NOREPINEPHRINE 8 MG in SODIUM CHLORIDE 0.9% 242 ML IV PRN ×2 (00:57→15:16)
[2020-12-04] MEDS: INSULIN LISPRO 100 UNITS/ML, PEN SQ-INSULIN SCH ×4 (04:53→21:03)
[2020-12-04 05:46] LABS: ANION GAP 2 mmol/L (5-15); CHLORIDE 104 mmol/L (98-107)
[2020-12-04 05:48] LABS: CALCIUM 8.8 mg/dL (8.5-10.1); CREATININE 0.57 mg/dL (0.55-1.02); TRIGLYCERIDES 141 mg/dL (50-200)
[2020-12-04 05:50] LABS: BASOPHILS % (AUTO) 1 % (0-1); EOSINOPHILS % (AUTO) 3 % (1-7); LYMPHOCYTES % (AUTO) 10 % (22-44); MEAN CORPUSCULAR HEMOGLOBIN 31.1 pg (27.0-34.8); MEAN PLATELET VOLUME 14.4 fL (7.4-10.4); MONOCYTES % (AUTO) 3 % (2-9); NEUTROPHILS % (AUTO) 84 % (42-75); RED BLOOD COUNT 3.57 x10^6/uL (3.82-5.3); RED CELL DISTRIBUTION WIDTH 14.3 % (9.6-15.2)
[2020-12-04 06:30] LABS: PLATELET COUNT 44 x10^3/uL (130-400)
[2020-12-04] MEDS ORDERED: POTASSIUM CHLORIDE 20 MEQ PACKET PO ONE (07:00)
[2020-12-04] MEDS: MULTIVITS,STRESS FORMULA 1 TABLET PO SCH (08:38)
[2020-12-04] MEDS: AMIODARONE 200 MG TABLET PO SCH (08:38)
[2020-12-04] MEDS: FLUTICASONE/VILANTEROL 100-25MCG/INH INH SCH (08:39)
[2020-12-04] MEDS: TEMPLATE NON-FORMULARY MED. (Macitentan** (Opsumit**) 10 MG) PO SCH (08:39)
[2020-12-04] MEDS: SENNA 176 MG/5 ML ORAL SOL PO SCH (08:40)
[2020-12-04] MEDS: DOCUSATE 50 MG/5 ML, 10ML UDC PO SCH (08:40)
[2020-12-04] MEDS: SODIUM CHLORIDE FLUSH 10ML SYR IVF SCH ×2 (08:41→21:03)
[2020-12-04] MEDS: PROPOFOL 100 ML IV PRN ×2 (11:12→23:45)
[2020-12-05] MEDS: NOREPINEPHRINE 8 MG in SODIUM CHLORIDE 0.9% 242 ML IV PRN ×2 (02:12→13:37)
[2020-12-05] MEDS: PROPOFOL 100 ML IV PRN ×3 (04:03→23:56)
[2020-12-05 04:04] LABS: BASOPHILS % (AUTO) 1 % (0-1); EOSINOPHILS % (AUTO) 3 % (1-7); LYMPHOCYTES % (AUTO) 10 % (22-44); MEAN CORPUSCULAR HEMOGLOBIN 31.8 pg (27.0-34.8); MEAN CORPUSCULAR HGB CONC 33.5 g/dL (32.4-35.8); MEAN PLATELET VOLUME 14.2 fL (7.4-10.4); MONOCYTES % (AUTO) 6 % (2-9); NEUTROPHILS % (AUTO) 80 % (42-75); RED CELL DISTRIBUTION WIDTH 14.2 % (9.6-15.2)
[2020-12-05 04:16] LABS: ANION GAP 4 mmol/L (5-15); CALCIUM 8.9 mg/dL (8.5-10.1); CHLORIDE 108 mmol/L (98-107); CREATININE 0.59 mg/dL (0.55-1.02)
[2020-12-05 04:34] LABS: PLATELET COUNT 38 x10^3/uL (130-400)
[2020-12-05] MEDS: INSULIN LISPRO 100 UNITS/ML, PEN SQ-INSULIN SCH ×4 (04:56→19:55)
[2020-12-05] MEDS: PANTOPRAZOLE GRAN. PKT 40 MG PO SCH (06:07)
[2020-12-05] MEDS ORDERED: POTASSIUM CHLORIDE 20 MEQ PACKET PO ONE (07:00)
[2020-12-05] MEDS ORDERED: MAGNESIUM SULFATE PMX 2GM/50ML 50 ML IV ONE (07:00)
[2020-12-05] MEDS: SILDENAFIL 20 MG TABLET PO SCH ×3 (08:00→23:55)
[2020-12-05] MEDS: TEMPLATE NON-FORMULARY MED. (Macitentan** (Opsumit**) 10 MG) PO SCH (08:39)
[2020-12-05] MEDS: MULTIVITS,STRESS FORMULA 1 TABLET PO SCH (08:40)
[2020-12-05] MEDS: AMIODARONE 200 MG TABLET PO SCH (08:40)
[2020-12-05] MEDS: DOCUSATE 50 MG/5 ML, 10ML UDC PO SCH (08:40)
[2020-12-05] MEDS: SENNA 176 MG/5 ML ORAL SOL PO SCH (08:41)
[2020-12-05] MEDS: FLUTICASONE/VILANTEROL 100-25MCG/INH INH SCH (08:41)
[2020-12-05] MEDS: SODIUM CHLORIDE FLUSH 10ML SYR IVF SCH ×2 (08:43→19:55)
[2020-12-06] MEDS: NOREPINEPHRINE 8 MG in SODIUM CHLORIDE 0.9% 242 ML IV PRN
[2020-12-06 04:17] LABS: BASOPHILS % (AUTO) 1 % (0-1); EOSINOPHILS % (AUTO) 3 % (1-7); LYMPHOCYTES % (AUTO) 9 % (22-44); MEAN CORPUSCULAR HEMOGLOBIN 31.9 pg (27.0-34.8); MEAN CORPUSCULAR HGB CONC 33.9 g/dL (32.4-35.8); MEAN PLATELET VOLUME 14.1 fL (7.4-10.4); MONOCYTES % (AUTO) 5 % (2-9); NEUTROPHILS % (AUTO) 83 % (42-75); RED BLOOD COUNT 3.18 x10^6/uL (3.82-5.3); RED CELL DISTRIBUTION WIDTH 14.5 % (9.6-15.2)
[2020-12-06 04:23] LABS: ANION GAP 4 mmol/L (5-15); CALCIUM 8.6 mg/dL (8.5-10.1); CHLORIDE 107 mmol/L (98-107); CREATININE 0.45 mg/dL (0.55-1.02)
[2020-12-06 04:27] LABS: PLATELET COUNT 34 x10^3/uL (130-400)
[2020-12-06] MEDS: INSULIN LISPRO 100 UNITS/ML, PEN SQ-INSULIN SCH ×4 (04:31→21:00)
[2020-12-06] MEDS: PANTOPRAZOLE GRAN. PKT 40 MG PO SCH (06:05)
[2020-12-06] MEDS: PROPOFOL 100 ML IV PRN ×3 (07:42→22:46)
[2020-12-06] MEDS: TEMPLATE NON-FORMULARY MED. (Macitentan** (Opsumit**) 10 MG) PO SCH (09:00)
[2020-12-06] MEDS: DOCUSATE 50 MG/5 ML, 10ML UDC PO SCH (09:18)
[2020-12-06] MEDS: MULTIVITS,STRESS FORMULA 1 TABLET PO SCH (09:18)
[2020-12-06] MEDS: SILDENAFIL 20 MG TABLET PO SCH ×2 (09:18→15:40)
[2020-12-06] MEDS: SODIUM CHLORIDE FLUSH 10ML SYR IVF SCH ×2 (09:19→21:53)
[2020-12-06] MEDS: SENNA 176 MG/5 ML ORAL SOL PO SCH (09:19)
[2020-12-06] MEDS ORDERED: POTASSIUM CHLORIDE 10% 40 MEQ/30 ML UDC PO ONE (10:00)
[2020-12-06] MEDS ORDERED: FUROSEMIDE 40 MG/4 ML IV ONE (10:00)
[2020-12-06] MEDS ORDERED: POTASSIUM CHLORIDE 20 MEQ PACKET ONE (10:33)
[2020-12-07] MEDS: SILDENAFIL 20 MG TABLET PO SCH ×3 (01:17→15:55)
[2020-12-07] MEDS: NOREPINEPHRINE 8 MG in SODIUM CHLORIDE 0.9% 242 ML IV PRN ×3 (01:18→23:21)
[2020-12-07] MEDS: INSULIN LISPRO 100 UNITS/ML, PEN SQ-INSULIN SCH ×4 (03:00→21:50)
[2020-12-07 04:19] LABS: BASOPHILS % (AUTO) 1 % (0-1); EOSINOPHILS % (AUTO) 3 % (1-7); LYMPHOCYTES % (AUTO) 10 % (22-44); MEAN CORPUSCULAR HGB CONC 33.1 g/dL (32.4-35.8); MEAN PLATELET VOLUME 14.3 fL (7.4-10.4); MONOCYTES % (AUTO) 4 % (2-9); NEUTROPHILS % (AUTO) 82 % (42-75); RED BLOOD COUNT 3.18 x10^6/uL (3.82-5.3)
[2020-12-07 04:24] LABS: ANION GAP 5 mmol/L (5-15); CALCIUM 8.3 mg/dL (8.5-10.1); CHLORIDE 106 mmol/L (98-107)
[2020-12-07 04:25] LABS: CREATININE 0.51 mg/dL (0.55-1.02); TRIGLYCERIDES 142 mg/dL (50-200)
[2020-12-07 05:49] LABS: PLATELET COUNT 32 x10^3/uL (130-400)
[2020-12-07] MEDS: PANTOPRAZOLE GRAN. PKT 40 MG PO SCH (06:02)
[2020-12-07] MEDS: PROPOFOL 100 ML IV PRN ×4 (06:05→23:20)
[2020-12-07] MEDS ORDERED: MAGNESIUM SULFATE PMX 2GM/50ML 50 ML IV ONE (06:30)
[2020-12-07] MEDS ORDERED: FUROSEMIDE 20 MG/2 ML ONE (09:32)
[2020-12-07] MEDS: POTASSIUM CHLORIDE 20 MEQ PACKET PO SCH ×2 (09:53→21:50)
[2020-12-07] MEDS: FUROSEMIDE 40 MG/4 ML IV SCH ×2 (09:54→16:13)
[2020-12-07] MEDS: DOCUSATE 50 MG/5 ML, 10ML UDC PO SCH (09:54)
[2020-12-07] MEDS: MULTIVITS,STRESS FORMULA 1 TABLET PO SCH (09:54)
[2020-12-07] MEDS: TEMPLATE NON-FORMULARY MED. (Macitentan** (Opsumit**) 10 MG) PO SCH (09:55)
[2020-12-07] MEDS: SODIUM CHLORIDE FLUSH 10ML SYR IVF SCH ×2 (09:55→21:51)
[2020-12-07] MEDS: SENNA 176 MG/5 ML ORAL SOL PO SCH (09:55)
[2020-12-07 10:54] LABS: D-DIMER (DIC) 2.71 ug/mlFEU (0.00-0.52); PROTIME 10.9 Seconds (9.6-11.5)
[2020-12-07] MEDS: FENTANYL PF 1,000 MCG in SODIUM CHLORIDE 0.9% 80 ML IV PRN (13:25)
[2020-12-07] MEDS: VECURONIUM 50 MG in SODIUM CHLORIDE 0.9% 50 ML IV PRN ×2 (17:57→18:13)
[2020-12-07] MEDS: ACETAMINOPHEN 325 MG TABLET PO PRN (19:51)
[2020-12-08] MEDS: VECURONIUM 50 MG in SODIUM CHLORIDE 0.9% 50 ML IV PRN ×2 (01:29→10:56)
[2020-12-08] MEDS: SILDENAFIL 20 MG TABLET PO SCH ×3 (01:29→16:34)
[2020-12-08] MEDS: FENTANYL PF 1,000 MCG in SODIUM CHLORIDE 0.9% 80 ML IV PRN ×2 (02:36→16:34)
[2020-12-08] MEDS: PROPOFOL 100 ML IV PRN ×4 (02:36→16:36)
[2020-12-08] MEDS: INSULIN LISPRO 100 UNITS/ML, PEN SQ-INSULIN SCH ×3 (04:36→15:57)
[2020-12-08 05:25] LABS: CALCIUM 8.4 mg/dL (8.5-10.1); CHLORIDE 104 mmol/L (98-107)
[2020-12-08 05:26] LABS: BASOPHILS % (AUTO) 1 % (0-1); EOSINOPHILS % (AUTO) 3 % (1-7); LYMPHOCYTES % (AUTO) 12 % (22-44); MEAN CORPUSCULAR HGB CONC 33.9 g/dL (32.4-35.8); MEAN PLATELET VOLUME 14.4 fL (7.4-10.4); MONOCYTES % (AUTO) 4 % (2-9); NEUTROPHILS % (AUTO) 81 % (42-75); RED BLOOD COUNT 3.39 x10^6/uL (3.82-5.3); RED CELL DISTRIBUTION WIDTH 14.9 % (9.6-15.2)
[2020-12-08 05:28] LABS: ANION GAP 6 mmol/L (5-15); CREATININE 0.73 mg/dL (0.55-1.02)
[2020-12-08] MEDS: NOREPINEPHRINE 8 MG in SODIUM CHLORIDE 0.9% 242 ML IV PRN ×3 (05:32→16:35)
[2020-12-08 05:35] LABS: PLATELET COUNT 39 x10^3/uL (130-400)
[2020-12-08] MEDS: TEMPLATE NON-FORMULARY MED. (Macitentan** (Opsumit**) 10 MG) PO SCH (08:57)
[2020-12-08] MEDS: PANTOPRAZOLE GRAN. PKT 40 MG PO SCH (08:57)
[2020-12-08] MEDS: FUROSEMIDE 40 MG/4 ML IV SCH ×2 (08:57→16:34)
[2020-12-08] MEDS: SODIUM CHLORIDE FLUSH 10ML SYR IVF SCH (08:57)
[2020-12-08] MEDS: SENNA 176 MG/5 ML ORAL SOL PO SCH (08:58)
[2020-12-08] MEDS: MULTIVITS,STRESS FORMULA 1 TABLET PO SCH (08:58)
[2020-12-08] MEDS: DOCUSATE 50 MG/5 ML, 10ML UDC PO SCH (08:58)
[2020-12-08] MEDS: POTASSIUM CHLORIDE 20 MEQ PACKET PO SCH (08:58)
[2020-12-08] MEDS ORDERED: FENTANYL PF 100 MCG/2ML IV PRN (17:30)
[2020-12-08] MEDS ORDERED: morphine SULFATE 10 MG/ML, 1ML IVPush PRN (18:00)
== END 2020-12-08 23:32 | DRG 207 ==
LOC: ED 14:44 → EDIP 15:47 → 5SO 17:13 → CCU 20:11
PROVIDERS: ADMIT Internal Medicine; ATTEND Hospitalist
PROC: XW033E5 Introduction of Remdesivir Anti-infective into Peripheral Vein, Percutaneous Approach, New Technology Group 5 (ICD-10-PCS; 2020-11-21)
PROC: 5A0935A Assistance with Respiratory Ventilation, Less than 24 Consecutive Hours, High Flow/Velocity Cannula (ICD-10-PCS; 2020-11-23)
PROC: 5A09457 Assistance with Respiratory Ventilation, 24-96 Consecutive Hours, Continuous Positive Airway Pressure (ICD-10-PCS; 2020-11-23)
PROC: 5A09357 Assistance with Respiratory Ventilation, Less than 24 Consecutive Hours, Continuous Positive Airway Pressure (ICD-10-PCS; 2020-11-26)
PROC: 5A0935A Assistance with Respiratory Ventilation, Less than 24 Consecutive Hours, High Flow/Velocity Cannula (ICD-10-PCS; 2020-11-26)
PROC: 5A0935A Assistance with Respiratory Ventilation, Less than 24 Consecutive Hours, High Flow/Velocity Cannula (ICD-10-PCS; 2020-11-27)
PROC: 5A1955Z Respiratory Ventilation, Greater than 96 Consecutive Hours (ICD-10-PCS; principal; 2020-11-28)
PROC: 0BH17EZ Insertion of Endotracheal Airway into Trachea, Via Natural or Artificial Opening (ICD-10-PCS; 2020-11-28)
PROC: 5A09357 Assistance with Respiratory Ventilation, Less than 24 Consecutive Hours, Continuous Positive Airway Pressure (ICD-10-PCS; 2020-11-28)
PROC: 5A09357 Assistance with Respiratory Ventilation, Less than 24 Consecutive Hours, Continuous Positive Airway Pressure (ICD-10-PCS; 2020-11-28)
PROC: 5A0935A Assistance with Respiratory Ventilation, Less than 24 Consecutive Hours, High Flow/Velocity Cannula (ICD-10-PCS; 2020-11-28)
PROC: 02HV33Z Insertion of Infusion Device into Superior Vena Cava, Percutaneous Approach (ICD-10-PCS; 2020-11-28)
PROC: B5181ZA Fluoroscopy of Superior Vena Cava using Low Osmolar Contrast, Guidance (ICD-10-PCS; 2020-11-28)
PROC: B548ZZA Ultrasonography of Superior Vena Cava, Guidance (ICD-10-PCS; 2020-11-28)
DX: U07.1 COVID-19 (principal); J12.82 Pneumonia due to coronavirus disease 2019; I21.A1 Myocardial infarction type 2; J80 Acute respiratory distress syndrome; N39.0 Urinary tract infection, site not specified; E87.3 Alkalosis; I47.2 Ventricular tachycardia; J44.0 Chronic obstructive pulmonary disease with (acute) lower respiratory infection; B96.20 Unspecified Escherichia coli [E. coli] as the cause of diseases classified elsewhere; I27.20 Pulmonary hypertension, unspecified; D69.6 Thrombocytopenia, unspecified; E66.9 Obesity, unspecified; E88.09 Other disorders of plasma-protein metabolism, not elsewhere classified; I11.0 Hypertensive heart disease with heart failure; I48.0 Paroxysmal atrial fibrillation; I49.3 Ventricular premature depolarization; I50.9 Heart failure, unspecified; T38.0X5A Adverse effect of glucocorticoids and synthetic analogues, initial encounter; Z51.5 Encounter for palliative care; Z66 Do not resuscitate; Y92.89 Other specified places as the place of occurrence of the external cause; Z79.899 Other long term (current) drug therapy
CPT/HCPCS: 36415; 36573; 36600; 71045; 76705; 80048; 80053; 81001; 82306; 82728; 82803; 82962; 83735; 84100; 84478; 84484; 85025; 85049; 85379; 85384; 85610; 85730; 86140; 87040; 87070; 87077; 87081; 87086; 87186; 87205; 93005; 93306; 93970; 94002; 94003; 94660; G0378; J0456; J0696; J1100; J1644; J1650; J1940; J2250; J2704; J3010; J7060; C1751; J0282; J1120; J1815; J2930; J3475; J7050